=== PATIENT | female | born 1970 | race African-American/Black ===

== ENCOUNTER 2016-12-12 23:34 | Emergency (ER) | payer BC ==
[~2016-12-12] VITALS: Ht 170.2 cm; Wt 81.7 kg
--- NOTE | ~2016-12-12 | EKG ---
[address] [address] [place] [address] ELECTROCARDIOGRAM REPORT Name: KAUSHAL HUYNH Room #: DEP Lorie#: [id number] Admission: 12/12/16 Attend Phys: Discharge: 12/13/16 Date of : 72 Report #: [id number] THIS REPORT FOR: //name// [facility] ED Test Date: 2016-12-13 Test Time: 01:13:34 Pat Name: KAUSHAL HUYNH Department: Room: Gender: F Telepathist: [id number] : 1970 Requested By: Ant Sierra Order Number: [id number] MD: Adi Alonso Measurements Intervals [place] Rate: 83 P: 43 ID: 208 QRS: 14 QRSD: 83 T: 23 QT: 381 QTc: 448 Interpretive Statements Sinus rhythm Borderline prolonged ID interval Compared to ECG 08/13/2016 20:45:57 No significant change was found Electronically Signed On 12-13-2016 8:35:30 CDT by Adi Alonso [email or web address] <ELECTRONICALLY SIGNED> By: Adi Alonso MD, [facility] 12/13/16 0835 [id number] 0113 Adi Alonso MD, FACC /EPI
[~2016-12-12 23:34] MED LIST: ADIPEX-P37.5 MG PO
[2016-12-13 01:28] LABS: ABSOLUTE NEUTROPHILS 6.3 thou/uL (1.4-8.2); BASOPHILS 0.7 % (0.0-2.0); EOSINOPHILS 0.6 % (0.0-3.0); HEMATOCRIT 36.1 % (37.0-47.0); HEMOGLOBIN 12.3 gm/dL (12.0-15.0); LYMPHOCYTES 24.5 % (24.0-44.0); MCH 29.5 pg (26.0-34.0); MCV 86.9 fL (80.0-100.0); MONOCYTES 9.1 % (1.0-8.0); PLATELET COUNT 212 thou/uL (150-400); POLYS 65.1 % (36.0-66.0); RBC 4.16 mil/uL (4.20-5.00); RDW 13.2 % (10.5-14.5); WBC 9.6 thou/uL (4.0-11.0)
[2016-12-13 01:29] LABS: MANUAL DIFF NO
[2016-12-13 01:40] LABS: ANION GAP 3 mmol/L (7-16); BUN 16 mg/dL (7-18); CALCIUM 8.7 mg/dL (8.5-10.1); CHLORIDE 105 mmol/L (98-107); CO2 27 mmol/L (21-32); GLUCOSE 104 mg/dL (74-106); SODIUM 135 mmol/L (136-145)
[2016-12-13 01:54] LABS: ALBUMIN 3.2 g/dL (3.4-5.0); ALKALINE PHOSPHATASE 61 U/L (46-116); NT-PRO BRAIN NAT PEPTIDE 19 pg/mL (<300); SGOT 18 U/L (15-37); SGPT 26 U/L (30-65); TOTAL BILIRUBIN 0.2 mg/dL (<0.1-1.0); TOTAL PROTEIN 7.1 g/dL (6.4-8.2); TROPONIN-I < 0.04 ng/mL (<0.04-0.07)
[2016-12-13 01:55] VITALS: BP 133/85
== END 2016-12-13 02:11 | disposition home or self-care (01) ==
LOC: ER 23:34
PROVIDERS: Emergency Medicine
DX: R60.0 Localized edema (principal); I87.2 Venous insufficiency (chronic) (peripheral); Z88.5 Allergy status to narcotic agent; Z88.8 Allergy status to other drugs, medicaments and biological substances

== ENCOUNTER 2017-01-17 23:35 | Emergency (ER) | payer BC ==
[~2017-01-17] VITALS: Ht 170.2 cm; Wt 90.7 kg
--- NOTE | ~2017-01-17 | EKG ---
[place] [address] [facility] [email or web address] [address] ELECTROCARDIOGRAM REPORT Name: KAUSHAL HUYNH Room #: DEP Lorie#: [id number] Admission: 01/17/17 Attend Phys: Discharge: 01/18/17 Date of : [birth year] Report #: [id number] THIS REPORT FOR: //name// [facility] ED Test Date: 2017-01-17 Test Time: 23:40:30 Pat Name: KAUSHAL HUYNH Department: Room: Gender: F Stretch Machine Operator: [id number] : 1970 Requested By: Mandi Ortiz Order Number: [id number] MD: Jones Nuno Measurements Intervals [place] Rate: 86 P: 36 NC: 192 QRS: 14 QRSD: 85 T: 7 QT: 370 QTc: 443 Interpretive Statements Sinus rhythm Borderline T abnormalities, inferior leads Baseline wander in lead(s) II,III,aVF Compared to ECG 12/13/2016 01:13:34 T-wave abnormality now present Electronically Signed On 01-20-2017 22:03:35 CDT by Jones Nuno [email or web address] <ELECTRONICALLY SIGNED> By: Jones Nuno MD 01/20/17 2203 2340 2340 Jones Nuno MD /EPI
[2017-01-18] MEDS ORDERED: NAPROSYN500 MG PO (01:37)
[2017-01-18 02:06] VITALS: BP 159/90
== END 2017-01-18 02:00 | disposition home or self-care (01) ==
LOC: ER 23:35
DX: R06.02 Shortness of breath (principal); R06.00 Dyspnea, unspecified; Z90.710 Acquired absence of both cervix and uterus; Z90.721 Acquired absence of ovaries, unilateral; Z88.5 Allergy status to narcotic agent; Z88.8 Allergy status to other drugs, medicaments and biological substances